=== PATIENT | male | born 1995 | race Caucasian/White ===

== ENCOUNTER 2023-09-29 12:23 | Emergency (ER) | payer OTHER ==
[2023-09-29] MEDS ORDERED: Sodium Chloride 0.9% 10 ML Syringe FLUSH PRN (12:34)
[2023-09-29 12:50] LABS: BASOPHILS ABSOLUTE AUTO 0.05 10^3/uL (0.00-0.10); BASOPHILS PERCENT AUTO 0.4 % (0.0-1.0); EOSINOPHILS ABSOLUTE AUTO 0.83 10^3/uL (0.10-0.30); EOSINOPHILS PERCENT AUTO 6.6 % (1.0-3.0); HEMATOCRIT 47.1 % (40.0-52.0); HEMOGLOBIN 16.3 g/dL (13.0-17.0); IMMATURE GRAN ABSOLUTE AUTO 0.02 10^3/uL (0.00-0.50); IMMATURE GRAN PERCENT AUTO 0.2 % (0.0-5.0); LYMPHOCYTES ABSOLUTE AUTO 2.32 10^3/uL (1.00-4.00); LYMPHOCYTES PERCENT AUTO 18.5 % (20.0-40.0); MEAN CORPUSCULAR HEMOGLOBIN 32.9 pg (27.0-31.0); MEAN CORPUSCULAR HGB CONC 34.6 g/dL (32.0-36.0); MEAN PLATELET VOLUME 9.4 fL (7.4-10.4); MONOCYTES ABSOLUTE AUTO 0.79 10^3/uL (0.10-0.80); MONOCYTES PERCENT AUTO 6.3 % (2.0-8.0); NEUTROPHILS ABSOLUTE AUTO 8.51 10^3/uL (2.50-7.00); PLATELET COUNT,PLT 212 10^3/uL (150-400); RED BLOOD CELL COUNT 4.96 10^6/uL (4.50-6.00); RED CELL DISTRIBUTION WIDTH 11.8 % (11.5-14.5); WHITE BLOOD CELL COUNT,WBC 12.52 10^3/uL (5.00-10.00)
[2023-09-29] MEDS: Iopamidol 755 Mg/ML 100 ML Bottle IV ONE (12:58)
[2023-09-29] MEDS: Sodium Chloride 0.9% 50 ML IV SCH (12:58)
[2023-09-29 13:16] LABS: ALBUMIN 3.57 g/dL (3.40-5.00); ANION GAP 12.1 mmol/L (5-15); BILIRUBIN TOTAL 0.9 mg/dL (0.2-1.0); CALCIUM 8.3 mg/dL (8.7-10.3); CARBON DIOXIDE,CO2 27.6 mmol/L (21.0-32.0); CREATININE 0.93 mg/dL (0.51-1.17); EST CRCL DRUG DOSING (CG) 127.48 mL/min; POTASSIUM,K 3.7 mmol/L (3.5-5.1); PROTEIN TOTAL,TP 7.1 g/dL (6.4-8.2)
== END 2023-09-29 14:30 | disposition home or self-care (01) ==
LOC: KA.ED 12:23
DX: R10.33 Periumbilical pain (principal); F17.200 Nicotine dependence, unspecified, uncomplicated; Z79.899 Other long term (current) drug therapy
CPT/HCPCS: 74177; 80053; 85025; 99284; J3490; Q9967

== ENCOUNTER 2024-04-19 12:20 | Emergency (ER) | payer OTHER ==
[2024-04-19 12:49] LABS: BASOPHILS ABSOLUTE AUTO 0.03 10^3/uL (0.00-0.10); BASOPHILS PERCENT AUTO 0.3 % (0.0-1.0); EOSINOPHILS ABSOLUTE AUTO 0.59 10^3/uL (0.10-0.30); EOSINOPHILS PERCENT AUTO 6.2 % (1.0-3.0); HEMOGLOBIN 16.2 g/dL (13.0-17.0); IMMATURE GRAN ABSOLUTE AUTO 0.01 10^3/uL (0.00-0.50); IMMATURE GRAN PERCENT AUTO 0.1 % (0.0-5.0); LYMPHOCYTES ABSOLUTE AUTO 1.47 10^3/uL (1.00-4.00); LYMPHOCYTES PERCENT AUTO 15.5 % (20.0-40.0); MEAN CORPUSCULAR HEMOGLOBIN 32.3 pg (27.0-31.0); MEAN CORPUSCULAR HGB CONC 34.5 g/dL (32.0-36.0); MEAN CORPUSCULAR VOLUME 93.8 fL (82.0-92.0); MEAN PLATELET VOLUME 9.6 fL (7.4-10.4); MONOCYTES ABSOLUTE AUTO 0.63 10^3/uL (0.10-0.80); MONOCYTES PERCENT AUTO 6.6 % (2.0-8.0); NEUTROPHILS ABSOLUTE AUTO 6.75 10^3/uL (2.50-7.00); NEUTROPHILS PERCENT AUTO 71.3 % (50.0-70.0); PLATELET COUNT,PLT 191 10^3/uL (150-400); RED BLOOD CELL COUNT 5.01 10^6/uL (4.50-6.00); RED CELL DISTRIBUTION WIDTH 11.4 % (11.5-14.5); WHITE BLOOD CELL COUNT,WBC 9.48 10^3/uL (5.00-10.00)
[2024-04-19 13:05] LABS: ALBUMIN 3.86 g/dL (3.40-5.00); ANION GAP 12.3 mmol/L (5-15); BILIRUBIN TOTAL 0.5 mg/dL (0.2-1.0); CALCIUM 8.3 mg/dL (8.7-10.3); CARBON DIOXIDE,CO2 28.4 mmol/L (21.0-32.0); CREATININE 0.97 mg/dL (0.51-1.17); EST CRCL DRUG DOSING (CG) 122.22 mL/min; POTASSIUM,K 3.7 mmol/L (3.5-5.1); PROTEIN TOTAL,TP 7.3 g/dL (6.4-8.2)
[2024-04-19] MEDS: Ketorolac 30 MG/ML SDV IVPUSH ONE (13:05)
[2024-04-19] MEDS: Ondansetron 4 MG/2 ML SDV IVPUSH ONE (13:05)
[2024-04-19 13:10] LABS: LACTIC ACID 0.8 mmol/L (0.4-2.0)
[2024-04-19] MEDS: Iopamidol 755 Mg/ML 100 ML Bottle IV ONE (13:10)
[2024-04-19] MEDS: Sodium Chloride 0.9% 50 ML IV SCH (13:10)
== END 2024-04-19 14:23 | disposition home or self-care (01) ==
LOC: KA.ED 12:20
DX: L02.211 Cutaneous abscess of abdominal wall (principal); K52.9 Noninfective gastroenteritis and colitis, unspecified; K62.89 Other specified diseases of anus and rectum; Z79.899 Other long term (current) drug therapy
CPT/HCPCS: 36415; 74177; 80053; 82150; 83605; 83690; 85025; 96374; 96375; 99284; 99284-25; J1885; J2405; J3490; Q9967

== ENCOUNTER 2024-05-25 14:00 | Day surgery (SDC) | payer OTHER ==
[~2024-05-25 14:00] MED LIST: Sodium Chloride 0.9% 10 ML Syringe FLUSH PRN
[2024-05-25] MEDS: Lactated Ringers 1,000 ML IV SCH (14:09)
[2024-05-25] MEDS ORDERED: Midazolam 1 MG/ML 2 ML SDV ONE (14:54)
[2024-05-25] MEDS ORDERED: Propofol 200 MG/20 ML SDV ONE (14:54)
[2024-05-25] MEDS ORDERED: Lactated Ringers 1,000 ML ONE (15:10)
== END 2024-05-25 16:10 | disposition home or self-care (01) ==
LOC: KA.SDS 14:00
PROVIDERS: ATTEND Surgery
DX: K64.4 Residual hemorrhoidal skin tags (principal); K52.9 Noninfective gastroenteritis and colitis, unspecified; L02.211 Cutaneous abscess of abdominal wall; F17.200 Nicotine dependence, unspecified, uncomplicated; Z79.899 Other long term (current) drug therapy
CPT/HCPCS: 45378; J2250; J2704; J7120; 00811